=== PATIENT | male | born 1950 | race Caucasian/White ===

== ENCOUNTER 2019-10-31 20:18 | Inpatient (IN) | payer MEDICARE ==
[~2019-10-31] VITALS: Ht 188 cm; Wt 83.7 kg
[2019-10-31 21:19] VITALS: BP 110/70; PULSE 70; TEMP 97.6
[2019-10-31 23:24] VITALS: BP 122/69; PULSE 65; TEMP 98.4
[2019-11-01] VITALS (12 sets, daily range): BP systolic 113–133; BP diastolic 49–72; PULSE 55–79; TEMP 98.2–100.1
[2019-11-01 00:55] LABS: MUCOUS Present /lpf; PH 6 (5-8); SQUAMOUS EPITHELIAL None Seen /hpf; URINE APPEARANCE Clear; URINE BACTERIA None Seen /hpf; URINE BILIRUBIN Negative (NEGATIVE); URINE BLOOD Negative (NEGATIVE); URINE COLOR Yellow; URINE GLUCOSE Negative (NEGATIVE); URINE KETONE Trace (NEGATIVE); URINE LEUKOCYTE ESTERASE Negative (NEGATIVE); URINE NITRATE Negative (NEGATIVE); URINE PROTEIN(semi-quant) Negative (NEGATIVE); URINE RBC 0-2 /hpf; URINE UROBILINOGEN Negative (NEGATIVE)
--- NOTE | 2019-11-01 01:31 | NUR ---
Patient to the floor at 2120. and daughter at bedside. Patient arrived by wheelchair and transferred by stand-pivot. Patient states his pain is tolerable, except when he moves. 18G to left forearm started and IVF initiated. Does not take any medications at home and has no drug allergies. Noted to have dressing next to right ear. States he had skin cancer removed recently. Dressing orders received from Kari Katz. Small linear incision noted with stitches intact. No redness, drainage, or swelling noted to site. Site cleansed per orders, vaseline applied, and new dressing applied. Refuses alvarez catheter and was able to bear weight on right leg only to stand and void. Patient educated about the dangers of bearing weight on a fractured hip, but he insisted he did not want a catheter and could not void lying down. 2 assist and walker from staff utilized to assist patient to stand. TAWANNA Quevedo called and stated they would see him around 0730. Kari Katz APRN, in to see patient. Morphine given for pain. Noted to be effective. No bruising or swelling to left hip noted. States he doesn't want ice at this time. Will continue to monitor patient.
[2019-11-01 01:43] LABS: COLLECTION METHOD CLEAN CATCH
[2019-11-01 05:23] LABS: BASO % 0.4 % (0.0-2.0); EOS # 0.2 (0.0-0.7); EOS % 2.2 % (0-4.0); GRAN % 73.5 % (42.2-75.2); HEMATOCRIT 40.4 % (42.0-52.0); HEMOGLOBIN 13.4 g/dl (13.5-18.0); LYMPH # 0.9 (1.2-3.4); LYMPH % 13.1 % (20.0-51.0); MEAN CELL VOLUME 84 fl (80.0-100.0); MEAN CORPUSCULAR HEMOGLOBIN 28 pg (27.0-31.0); MEAN CORPUSCULAR HGB CONC 33 g/dl (33.0-37.0); MEAN PLATELET VOLUME 10.2 fl (7.4-10.4); MONO # 0.7 (0.1-0.6); MONO % 10.7 % (1.7-9.3); PLATELET COUNT 201 K/mm3 (130-400); REDCELL DISTRIBUTION WIDTH-CV 13.3 % (11.5-14.5)
[2019-11-01 05:24] LABS: INR 1.2 (0.8-3.0); PROTHROMBIN TIME 13.5 SECONDS (9.7-12.8)
[2019-11-01 05:28] LABS: ALBUMIN 3.8 gm/dL (3.5-5.0); BILIRUBIN,TOTAL 1.2 mg/dL (0.0-1.0); CALCIUM 8.7 mg/dL (8.4-10.2); CREATININE, serum 0.83 (0.66-1.25); POTASSIUM 3.8 mmol/L (3.4-5.0); TOTAL PROTEIN 6.6 gm/dL (6.4-8.2)
[2019-11-01 05:35] LABS: PRE ALBUMIN 17.1 mg/dL (17.6-36.0)
--- NOTE | 2019-11-01 09:30 | NUR ---
Orthopedics saw patient. Left hip pain relieved with prn Morphine. NPO. To surgery per bed with OR staff. Family here.
--- NOTE | 2019-11-01 12:45 | NUR ---
Returned to room from PACU. VSS. Aquacell dressing to left hip CDI. Ice pack to hip. No complaints. Family at bedside.
--- NOTE | 2019-11-01 13:07 | NUR ---
Plan: May need skilled placement Assess: SW met with patient, Anna , and DTr Analilia . Patient gave verbal auth to speak infront of family. Patient reports that they reside in [facility]. Patient reports that prior to this no mobility issues and no DME. PCP is reported as Dr. Burnette. Not currently using any Home health. Action: Waiting on PT/OT to see what type of services will need to be offered, will follow care. Left DPOA paperwork with family.
--- NOTE | 2019-11-01 18:30 | NUR ---
Stood with walker several times to urinate. Medicated with Roxicodone and Morphine for left hip pain with activity.
--- NOTE | 2019-11-01 19:25 | NUR ---
SPOKE WITH RAFI STACY REGARDING PATIENT NEEDING STRAIGHT CATH FOR URINE RETENTION >880CC. NEW ORDER RECEIVED.
--- NOTE | 2019-11-01 19:30 | NUR ---
STRAIGHT CATHED FOR 1200CC OF YELLOW URINE. PATIENT TOLERATED PROCEDURE WITHOUT PROBLEM.
--- NOTE | 2019-11-01 20:55 | NUR ---
MEDICATED WITH OXYCODONE 10MG PO FOR PAIN 06/20 TO LEFT HIP. MAMTA OBREGON D/I. SPOUSE AT BEDSIDE.
--- NOTE | 2019-11-01 21:28 | NUR ---
CONTINUED PAIN, MORPHINE 2MG IVP GIVEN AT THIS TIME.
--- NOTE | 2019-11-01 21:50 | NUR ---
PATIENT STOOD AT BEDSIDE, VOIDED 200CC OF YELLOW URINE WITHOUT PROBLEM.
[2019-11-02] VITALS: BP 118/59; PULSE 77; TEMP 99.9
--- NOTE | 2019-11-02 00:16 | NUR ---
MEDICATED WITH MORPHINE 2MG IVP FOR LEFT HIP PAIN. DOZES OFF AND ON.
--- NOTE | 2019-11-02 03:06 | NUR ---
PATIENT REQUESTS TO TRY TO USE THE BSC TO URINATE, PATIENT SITS DOWN AT HOME. MEDICATED WITH OXYCODONE 10MG PO AND MORPHINE 2MG IVP FOR PAIN 8/10 TO LEFT HIP.
--- NOTE | 2019-11-02 03:20 | NUR ---
PATIENT ABLE TO URINATE WHILE SITTING ON THE COMMODE. BACK TO BED AND APPEARS DROWSY.
[2019-11-02 03:38] VITALS: BP 120/51; PULSE 74; TEMP 99.7
--- NOTE | 2019-11-02 08:08 | NUR ---
PATIENT IS SITTING UP IN BED WITH FAMILY PRESENT AT THE BEDSIDE. PATIENT IS DROWSY BUT A&OX4. VSS. BOWEL SOUNDS ACTIVE ALL FOUR QUADRANTS. PATIENT REPORTS THAT HE DOES NOT HAVE MUCH OF AN APPETITE. PATIENT DENIES N/V. RIGHT BAHAI INCISION ELISHA WITH SUTURES IN PLACE AND EDGES WELL APPROXIMATED. LEFT HIP AQUACEL DRESSING IS CD&I. ICE PACK IN PLACE. LLE ELEVATED ON PILLOWS. CAP REFILL <3 SECONDS. CMS INTACT. CHRIS HOSE AND SCD'S TO BLE. NON-PITTING EDEMA TO LLE. IV FLUIDS INFUSING TO LEFT FOREARM IV. PATIENT GIVEN PRN PO OXYCODONE PRIOR TO WORKING WITH THERAPY. CALL LIGHT WITHIN REACH. PATIENT DENIES ANY NEEDS AT THIS TIME.
[2019-11-02 08:26] VITALS: BP 123/59; PULSE 79; TEMP 98.7
[2019-11-02 09:28] LABS: BASO % 0.4 % (0.0-2.0); EOS # 0.1 (0.0-0.7); EOS % 0.6 % (0-4.0); GRAN # 7.8 (1.4-6.5); GRAN % 80.3 % (42.2-75.2); HEMATOCRIT 38.2 % (42.0-52.0); HEMOGLOBIN 12.4 g/dl (13.5-18.0); LYMPH # 0.7 (1.2-3.4); LYMPH % 7.6 % (20.0-51.0); MEAN CELL VOLUME 85 fl (80.0-100.0); MEAN CORPUSCULAR HEMOGLOBIN 28 pg (27.0-31.0); MEAN CORPUSCULAR HGB CONC 33 g/dl (33.0-37.0); MEAN PLATELET VOLUME 10.7 fl (7.4-10.4); MONO # 1.1 (0.1-0.6); MONO % 10.7 % (1.7-9.3); PLATELET COUNT 167 K/mm3 (130-400); REDCELL DISTRIBUTION WIDTH-CV 13.4 % (11.5-14.5)
[2019-11-02 09:38] LABS: CALCIUM 8.3 mg/dL (8.4-10.2); CREATININE, serum 0.89 (0.66-1.25); POTASSIUM 3.6 mmol/L (3.4-5.0)
--- NOTE | 2019-11-02 10:45 | NUR ---
IV TO INT PER ORDERS.
[2019-11-02 12:51] VITALS: BP 138/58; PULSE 76; TEMP 98.7
--- NOTE | 2019-11-02 13:36 | NUR ---
Physical therapy is recommending outpatient physical therapy. The patient chose [facility]. VICTORINO faxed referral to Sil[facility] at [facility] . Awaiting response.
[2019-11-02 17:04] VITALS: BP 125/66; PULSE 80; TEMP 99.1
--- NOTE | 2019-11-02 18:00 | NUR ---
PATIENT GIVEN PO TYLENOL 650 MG FOR TEMPURATURE OF 99.1. WILL CONTINUE TO MONITOR.
--- NOTE | 2019-11-02 18:55 | NUR ---
PATIENT FAMILY CAME TO NURSES STATION AND STATED THAT THE PATIENT HAS STARTED SWEATING. TEMPURATURE RE-CHECKED AFTER PRN DOSE OF TYLENOL PO GIVEN FOR TEMPURATURE OF 99.1. TEMPERATURE IS NOW 99.8. WILL CONTINUE TO MONITOR.
--- NOTE | 2019-11-02 19:18 | NUR ---
REPORT GIVEN TO NAE BECKER.
[2019-11-02 20:12] VITALS: BP 106/59; PULSE 79; TEMP 98.5
--- NOTE | 2019-11-02 21:15 | NUR ---
Resting in bed. Assessment complete. Lungs clear. Heart sounds normal. Bowels active x4. Pulses strong throughout. No edema noted. INT left forearm flushed without complications. Incision to left hip CDI with aquacell intact. Incision right face-dressing changed as ordered. Patient denies pain. Denies needs at this time. Call light in reach. at bedside.
[2019-11-03 00:08] VITALS: BP 99/58; PULSE 71; TEMP 98.7
--- NOTE | 2019-11-03 00:15 | NUR ---
Resting in bed with at bedside. Denies needs. Call light in reach.
[2019-11-03 03:57] VITALS: BP 118/59; PULSE 81; TEMP 97.9
--- NOTE | 2019-11-03 04:30 | NUR ---
Patient denies pain. at bedside. Large bowel movement at this time. Call light in reach.
--- NOTE | 2019-11-03 06:13 | NUR ---
Patient had uneventful night. No pain throughout night. remained at bedside. Denied needs this AM. Call light in reach.
--- NOTE | 2019-11-03 07:22 | NUR ---
Report given to NAE Noble
[2019-11-03] MEDS ORDERED: ASPI325T6 PO (07:54)
[2019-11-03] MEDS ORDERED: OSCAL 500 TAB500 MG PO (07:55)
[2019-11-03] MEDS ORDERED: VITAMIN C500 MG PO (07:55)
[2019-11-03] MEDS ORDERED: DUO-KAPS1 CAP PO (07:55)
[2019-11-03 08:05] VITALS: BP 116/60; PULSE 86; TEMP 98.5
--- NOTE | 2019-11-03 09:30 | NUR ---
Patient alert and oriented, answers questions appropriately. See assessment. LLE with Aquacel to incision CDI, some redness and bruising noted. 2+ edema to LLE incision area. FWB. Pulses intact. Post op exercises reviewed. No c/o at this time.
[2019-11-03] MEDS ORDERED: ROXICODONE 55 MG/TAB PO (09:34)
--- NOTE | 2019-11-03 10:06 | NUR ---
The patient is to discharge home this day, 11/03 with outpatient physical therapy at [facility]. The patient's will provide transportation. VICTORINO faxed order to and original was provided for the patient. VICTORINO presented the IM form to the patient. The patient understood and signed the form. The original was placed in the chart and a copy was provided to the patient. There are no additional needs at this time.
--- NOTE | 2019-11-03 11:48 | NUR ---
Discharge instructions reviewed with patient and spouse, verbalized understanding. Discharged via wheelchair to auto/home with family at 1140.
== END 2019-11-03 11:20 | disposition home or self-care (01) | DRG 470 ==
LOC: SURG 20:18
PROVIDERS: Nurse Practitioner Family; ADMIT Student in an Organized Health Care Education/Training Program
PROC: 0SRS019 Replacement of Left Hip Joint, Femoral Surface with Metal Synthetic Substitute, Cemented, Open Approach (ICD-10-PCS; principal; 2019-10-31)
DX: S72.002A Fracture of unspecified part of neck of left femur, initial encounter for closed fracture (principal); E87.1 Hypo-osmolality and hyponatremia; W00.0XXA Fall on same level due to ice and snow, initial encounter; Z66 Do not resuscitate; Y93.89 Activity, other specified; Z85.828 Personal history of other malignant neoplasm of skin; Y92.79 Other farm location as the place of occurrence of the external cause; Y99.0 Civilian activity done for income or pay
CPT/HCPCS: 99231-AI; 99239; A9284; C1776; J0690; J2250; J2270; J2704; J7120; J7121

== ENCOUNTER 2020-05-26 07:04 | Day surgery (SDC) | payer MEDICARE ==
[~2020-05-26] VITALS: Ht 188 cm; Wt 38.1 kg
[~2020-05-26 07:04] MED LIST: ASPI325T6 PO; DUO-KAPS1 CAP PO; OSCAL 500 TAB500 MG PO; ROXICODONE 55 MG/TAB PO; VITAMIN C500 MG PO
[2020-05-26 07:35] VITALS: BP 154/79; PULSE 64; TEMP 97.5
[2020-05-26] MEDS ORDERED: GARLIC100 MG PO (08:06)
[2020-05-26] MEDS ORDERED: OMEGA-3 1000 MG1 CAP PO (08:06)
[2020-05-26] MEDS ORDERED: ADVIL200 MG PO ×2 (08:11→08:12)
[2020-05-26 11:55] VITALS: BP 123/67; PULSE 62; TEMP 97.3
[2020-05-26 12:10] VITALS: BP 123/64; PULSE 57
[2020-05-26 12:25] VITALS: BP 116/62; PULSE 55
[2020-05-26 12:45] VITALS: BP 121/65; PULSE 55
--- NOTE | 2020-05-26 14:34 | NUR ---
PT RETURNED FROM PACU PER CART. PT A/OX3, LUNGS CLEAR, HRR, BOWEL SOUNDS PRESENT. BOLDEN SET DRESSING X3 INTACT. NO REDNESS, SWELLING OR DRAINAGE NOTED. PT DENIES PAIN, RATES DISCOMFORT AT A 2 ON 0-10 SCALE. PT DENIES NAUSEA AND REQUESTS WATER AND VANILLA PUDDING. WILL CONT TO MONITOR PROGRESS.
--- NOTE | 2020-05-26 14:40 | NUR ---
PT TOLERATING VANILLA PUDDING AND WATER. DENIES PAIN AND NAUSEA AT THIS TIME. WILL CONT TO MONITOR PROGRESS.
--- NOTE | 2020-05-26 14:44 | NUR ---
PT A/OX3. PT DENIES PAIN OR NAUSEA AT THIS TIME. 3X LOWER ABD INSERTION SITES CLEAN, DRY AND INTACT. VSS. DC'D #18 PER RIGHT HAND WITHOUT DIFFICULTY. DISMISSAL INSTRUCTIONS GIVEN, PT VOICES UNDERSTANDING. PT DISMISSED TO FAMILY VEHICLE.
== END 2020-05-26 13:04 | disposition home or self-care (01) ==
LOC: SDCO 07:04
DX: K40.90 Unilateral inguinal hernia, without obstruction or gangrene, not specified as recurrent (principal); Z79.899 Other long term (current) drug therapy; Z96.642 Presence of left artificial hip joint; Z96.612 Presence of left artificial shoulder joint; Z79.82 Long term (current) use of aspirin
CPT/HCPCS: C1781; J0690; J1100; J1885; J2405; J2704; J3010; J7120